=== PATIENT | male | born 1995 | race Hispanic/Latino ===

== ENCOUNTER 2017-11-26 18:44 | Emergency (ER) | payer BC, MEDICAID, OTHER ==
[~2017-11-26 18:44] MED LIST: IBUP200C5 PO; RANI25VI2 PO
[2017-11-26 19:59] LABS: RAPID GROUP A STREP NEGATIVE (NEGATIVE)
== END 2017-11-26 20:09 | disposition home or self-care (01) ==
LOC: EDH 18:44
DX: J06.9 Acute upper respiratory infection, unspecified (principal); R11.2 Nausea with vomiting, unspecified
CPT/HCPCS: 71046; 87804; 87880

== ENCOUNTER 2018-11-21 16:23 | Emergency (ER) | payer BC ==
[2018-11-21] MEDS ORDERED: IBUPROFEN 600 MG TABLET ONE (16:37)
[2018-11-21 17:19] LABS: RAPID GROUP A STREP NEGATIVE (NEGATIVE)
== END 2018-11-21 17:28 | disposition home or self-care (01) ==
LOC: EDH 16:23
DX: J10.1 Influenza due to other identified influenza virus with other respiratory manifestations (principal)
CPT/HCPCS: 87804; 87880

== ENCOUNTER 2019-08-14 16:34 | Emergency (ER) | payer BC, OTHER ==
[2019-08-14 17:35] LABS: BASOPHILS % (AUTO) 0.5 % (0.0-5.0); HEMATOCRIT 42.4 % (42-54); LYMPHOCYTES % (AUTO) 27.2 % (21.0-51.0); MEAN CORPUSCULAR HEMOGLOBIN 30.3 pg (27.0-33.0); MEAN CORPUSCULAR HGB CONC 35.1 g/dL (32.0-36.0); MEAN CORPUSCULAR VOLUME 86.3 fL (79-99); MONOCYTES % (AUTO) 8.7 % (3.0-13.0); NEUTROPHILS % (AUTO) 62.6 % (40.0-77.0); NUCLEATED RED BLOOD CELLS 0.2 % (0.0-0.19); PLATELET COUNT (AUTO) 197 K/uL (130-400); RED BLOOD CELL COUNT(AUTO) 4.91 MIL/uL (4.50-6.20)
[2019-08-14 17:49] LABS: CREATININE 0.7 mg/dL (0.5-1.5); POTASSIUM 3.9 mmol/L (3.5-5.1)
== END 2019-08-14 18:42 | disposition home or self-care (01) ==
LOC: EDH 16:34
DX: R00.2 Palpitations (principal)
CPT/HCPCS: 36415; 71045; 80048; 82550; 84484; 85025; 93005